=== PATIENT | female | born 1975 | race Caucasian/White ===

== ENCOUNTER → 2019-06-14 | Outpatient (REF) | payer OTHER | LOC: M SFHCPLAZ 11:12 | PROVIDERS: ATTEND Family Medicine | DX: Z13.1 Encounter for screening for diabetes mellitus (principal); Z13.220 Encounter for screening for lipoid disorders; R20.2 Paresthesia of skin ==

== ENCOUNTER → 2019-07-05 | Outpatient (REF) | payer OTHER ==
[2019-07-05 12:23] LABS: CHOLESTEROL RISK RATIO 5.925 (<5); FOLATE 11.9 NG/ML (>5.4)
[2019-07-05 12:46] LABS: HEMOGLOBIN A1c 5.4 %
[2019-07-05 13:04] LABS: MALB URINE SIEMENS 18.8 MG/L; MAU/CREAT RATIO 9.1 MCG/MG (0.0-30.0)
== END ==
LOC: M SFHCPLAZ 10:13
PROVIDERS: ATTEND Family Medicine
DX: Z13.220 Encounter for screening for lipoid disorders (principal); Z13.1 Encounter for screening for diabetes mellitus; R20.2 Paresthesia of skin

== ENCOUNTER → 2019-07-06 | Outpatient (CLI) | payer OTHER ==
--- NOTE | 2019-07-06 15:49 | REPMRS ---
Patient History The patient states she has not had a clinical breast exam in over a year. Family history of unknown cancer in paternal grandfather. Digital Woman Screen Mammo: July 06, 2019 - Exam #: [id number] Bilateral CC and MLO view(s) were taken. Technologist: Divine Jimenez, Technologist Prior study comparison: March 02, 2018, right breast diagnostic unilateral mammo, performed at [facility]. February 25, 2018, bilateral digital woman screen mammo, performed at [facility]. FINDINGS: The breast tissue is heterogeneously dense. This may lower the sensitivity of mammography. The previously noted intramammary lymph node in the upper outer quadrant of the right breast again seen unchanged. There is a moderate amount of heterogeneously dense fibroglandular tissue which is fairly symmetric. There is no interval development of dominant mass, architectural distortion, or grouped microcalcification typical of malignancy. There has been no change in the appearance of the mammogram from the prior studies. 3-D tomosynthesis shows no additional findings. Assessment: BI-RADS/ACR category 2 mammogram. Benign Findings. Recommendation Routine screening mammogram of both breasts in 1 year (for women over age 40). This patient's Lifetime Breast Cancer RIsk is estimated at 9.4 %. This mammogram was interpreted with the aid of an FDA-approved computer-aided dectection system. Electronically Signed By: Chase Schmidt MD 07/06/19 [id number]
== END ==
LOC: M WHC 14:23
PROVIDERS: ATTEND Student in an Organized Health Care Education/Training Program
DX: Z12.31 Encounter for screening mammogram for malignant neoplasm of breast (principal)

== ENCOUNTER → 2020-02-16 | Outpatient (REF) | payer OTHER | LOC: M SFHCWAGY 10:02 | PROVIDERS: ATTEND Student in an Organized Health Care Education/Training Program | DX: Z12.4 Encounter for screening for malignant neoplasm of cervix (principal) ==

== ENCOUNTER → 2021-01-30 | Outpatient (CLI) | payer OTHER ==
--- NOTE | 2021-01-30 12:58 | REP ---
INDICATION: LOW BACK PAIN, UNSPECIFIED COMPARISON: None. TECHNIQUE: AP, lateral, coned-down views of the lumbar spine. FINDINGS: Three views of the lumbosacral spine demonstrate satisfactory alignment and lordosis without acute fracture / compression injury or subluxation. Minimal age-related changes with small marginal spurring and mild hypertrophic facet changes. IMPRESSION: 1. No acute fracture / compression injury or subluxation. 2. Minimal age-related degenerative changes. If the patient remains symptomatic MRI should be considered for further investigation. <Electronically signed by Mp Amaro > 01/30/21 [id number]
== END ==
LOC: M PLALAB 12:12
PROVIDERS: ATTEND Nurse Practitioner Adult Health
DX: M25.78 Osteophyte, vertebrae (principal); M54.50 Low back pain, unspecified
CPT/HCPCS: 72100; G0463

== ENCOUNTER → 2021-03-07 | Outpatient (CLI) | payer OTHER ==
[2021-03-07 16:21] LABS: CHOLESTEROL RISK RATIO 6.648 (<5)
== END ==
LOC: M PLALAB 12:42
PROVIDERS: ATTEND Student in an Organized Health Care Education/Training Program
DX: E78.2 Mixed hyperlipidemia (principal)

== ENCOUNTER → 2021-03-07 | Outpatient (REF) | payer OTHER | LOC: M SFHCPLAZ 12:02 | PROVIDERS: ATTEND Family Medicine | DX: Z53.20 Procedure and treatment not carried out because of patient's decision for unspecified reasons (principal) ==

== ENCOUNTER → 2021-07-03 | Outpatient (CLI) | payer OTHER ==
[2021-07-03 13:39] LABS: BASO # 0.1 10^3/uL (0.0-0.2); BASO % 0.7 % (0.0-1.0); EOS # 0.2 10^3/uL (0.0-0.5); EOS % 2.5 % (0.0-3.0); HEMATOCRIT 42.5 % (36.0-47.0); HEMOGLOBIN 13.9 g/dl (12.0-15.5); LYMPH # 2.8 10^3/uL (1.5-5.0); LYMPH % 36.4 % (24.0-44.0); MEAN CORPUSCULAR HEMOGLOBIN 27.3 pg (27.0-33.0); MEAN CORPUSCULAR HGB CONC 32.7 g/dl (32.0-36.5); MEAN CORPUSCULAR VOLUME 83.5 fl (80.0-96.0); MONO # 0.5 10^3/uL (0.0-0.8); MONO % 6.9 % (2.0-8.0); NEUTROPHILS % 53.1 % (36.0-66.0); PLATELET COUNT, AUTOMATED 283 10^3/uL (150-450); RED BLOOD COUNT 5.09 10^6/uL (4.00-5.40); WHITE BLOOD COUNT 7.6 10^3/uL (4.0-10.0)
== END ==
LOC: M PLALAB 11:54
PROVIDERS: ATTEND Student in an Organized Health Care Education/Training Program
DX: R10.9 Unspecified abdominal pain (principal)

== ENCOUNTER → 2021-09-04 | Outpatient (CLI) | payer OTHER | LOC: M PLAIMG 13:12 | PROVIDERS: ATTEND Student in an Organized Health Care Education/Training Program | DX: R10.9 Unspecified abdominal pain (principal) ==

== ENCOUNTER → 2023-01-11 | Outpatient (CLI) | payer OTHER ==
[2023-01-11 17:50] LABS: BASO # 0.1 10^3/uL (0.0-0.2); BASO % 0.7 % (0.0-1.0); EOS # 0.2 10^3/uL (0.0-0.5); EOS % 2.5 % (0.0-3.0); HEMATOCRIT 40.1 % (36.0-47.0); HEMOGLOBIN 12.9 g/dl (12.0-15.5); LYMPH # 2.6 10^3/uL (1.5-5.0); LYMPH % 36.6 % (24.0-44.0); MEAN CORPUSCULAR HEMOGLOBIN 27.4 pg (27.0-33.0); MEAN CORPUSCULAR HGB CONC 32.2 g/dl (32.0-36.5); MEAN CORPUSCULAR VOLUME 85.3 fl (80.0-96.0); MONO # 0.5 10^3/uL (0.0-0.8); MONO % 6.6 % (2.0-8.0); NEUTROPHILS # 3.8 10^3/uL (1.5-8.5); NEUTROPHILS % 53.3 % (36.0-66.0); PLATELET COUNT, AUTOMATED 308 10^3/uL (150-450); WHITE BLOOD COUNT 7.1 10^3/uL (4.0-10.0)
[2023-01-11 18:04] LABS: HEMOGLOBIN A1c 4.7 % (4.0-6.0)
[2023-01-11 18:16] LABS: ALBUMIN 3.8 G/DL (3.2-5.2); ALKALINE PHOSPHATASE 76 U/L (46-116); ALT/SGPT 11 U/L (7.0-40); AST/SGOT 14 U/L (<34); BILIRUBIN,TOTAL 0.5 MG/DL (0.3-1.2); BLOOD UREA NITROGEN 10 MG/DL (9-23); CALCIUM LEVEL 9.4 MG/DL (8.5-10.1); CARBON DIOXIDE LEVEL 29 MMOL/L (20-31); CHLORIDE LEVEL 103 MMOL/L (98-107); CHOLESTEROL LEVEL 221 MG/DL (<200); CHOLESTEROL RISK RATIO 5.72 (<5); GLOMERULAR FILTRATION RATE > 60.0 (>58); GLUCOSE, FASTING 83 MG/DL (60-100); HDL CHOLESTEROL 38.6 MG/DL (>40); LDL CHOLESTEROL 110.2 MG/DL (<100); NON-HDL-C 182.4 MG/DL; POTASSIUM SERUM 4.1 MMOL/L (3.5-5.1); SODIUM LEVEL 140 MMOL/L (136-145); TOTAL PROTEIN 6.7 G/DL (5.7-8.2); TRIGLYCERIDES LEVEL 361 MG/DL (<150)
== END ==
LOC: M PLALAB 11:44
PROVIDERS: ATTEND Student in an Organized Health Care Education/Training Program
DX: Z00.00 Encounter for general adult medical examination without abnormal findings (principal)

== ENCOUNTER → 2023-01-25 | Outpatient (REF) | payer OTHER | LOC: M SFHCPLAZ 17:25 | PROVIDERS: ATTEND Student in an Organized Health Care Education/Training Program | DX: Z12.4 Encounter for screening for malignant neoplasm of cervix (principal) | CPT/HCPCS: G0123; G0463 ==

== ENCOUNTER → 2023-02-01 | Outpatient (CLI) | payer OTHER | LOC: M WHC 12:45 | PROVIDERS: ATTEND Student in an Organized Health Care Education/Training Program | DX: Z12.31 Encounter for screening mammogram for malignant neoplasm of breast (principal) ==

== ENCOUNTER → 2023-02-18 | Outpatient (CLI) | payer OTHER | LOC: M PLAIMG 14:06 | PROVIDERS: ATTEND Student in an Organized Health Care Education/Training Program | DX: R07.89 Other chest pain (principal) ==

== ENCOUNTER → 2023-04-29 | Outpatient (CLI) | payer OTHER ==
[2023-04-29 19:03] LABS: FREE T4 1.02 NG/DL (0.89-1.76); THYROID STIMULATING HORMONE 1.468 uIU/ML (0.55-4.78)
[2023-04-29 19:04] LABS: BLOOD UREA NITROGEN 16 MG/DL (9-23); CALCIUM LEVEL 9.2 MG/DL (8.5-10.1); CARBON DIOXIDE LEVEL 29 MMOL/L (20-31); CHLORIDE LEVEL 106 MMOL/L (98-107); CREATININE FOR GFR 0.65 MG/DL (0.55-1.30); GLOMERULAR FILTRATION RATE > 60.0 (>58); GLUCOSE, FASTING 74 MG/DL (60-100); POTASSIUM SERUM 4.2 MMOL/L (3.5-5.1); SODIUM LEVEL 141 MMOL/L (136-145)
== END ==
LOC: M PLALAB 15:52
PROVIDERS: ATTEND Student in an Organized Health Care Education/Training Program
DX: R00.0 Tachycardia, unspecified (principal)

== ENCOUNTER → 2024-02-28 | Outpatient (CLI) | payer OTHER | LOC: M WHC 10:55 | PROVIDERS: ATTEND Student in an Organized Health Care Education/Training Program | DX: Z12.31 Encounter for screening mammogram for malignant neoplasm of breast (principal); R92.333 Mammographic heterogeneous density, bilateral breasts ==

== ENCOUNTER → 2024-07-06 | Outpatient (CLI) | payer OTHER ==
[2024-07-06 16:05] LABS: BASO # 0.1 10^3/uL (0.0-0.2); BASO % 0.6 % (0.0-1.0); EOS # 0.1 10^3/uL (0.0-0.5); EOS % 1.6 % (0.0-3.0); HEMATOCRIT 41.9 % (36.0-47.0); HEMOGLOBIN 13.7 g/dl (12.0-15.5); LYMPH # 2.8 10^3/uL (1.5-5.0); LYMPH % 34.3 % (24.0-44.0); MEAN CORPUSCULAR HEMOGLOBIN 27.6 pg (27.0-33.0); MEAN CORPUSCULAR HGB CONC 32.7 g/dl (32.0-36.5); MEAN CORPUSCULAR VOLUME 84.3 fl (80.0-96.0); MONO # 0.5 10^3/uL (0.0-0.8); NEUTROPHILS # 4.6 10^3/uL (1.5-8.5); NEUTROPHILS % 57.1 % (36.0-66.0); PLATELET COUNT, AUTOMATED 321 10^3/uL (150-450); RED BLOOD COUNT 4.97 10^6/uL (4.00-5.40); WHITE BLOOD COUNT 8.1 10^3/uL (4.0-10.0)
[2024-07-06 16:32] LABS: ALBUMIN 3.8 G/DL (3.2-5.2); ALKALINE PHOSPHATASE 87 U/L (35-104); ALT/SGPT 14 U/L (7.0-40); AST/SGOT 11 U/L (<34); BILIRUBIN,TOTAL 0.6 MG/DL (0.3-1.2); BLOOD UREA NITROGEN 18 MG/DL (9-23); CALCIUM LEVEL 9.3 MG/DL (8.5-10.1); CARBON DIOXIDE LEVEL 30 MMOL/L (20-31); CHLORIDE LEVEL 105 MMOL/L (98-107); CHOLESTEROL LEVEL 230 MG/DL (<200); CHOLESTEROL RISK RATIO 4.76 (<5); CREATININE FOR GFR 0.74 MG/DL (0.55-1.30); GLOMERULAR FILTRATION RATE > 60.0 (>58); GLUCOSE, FASTING 72 MG/DL (60-100); HDL CHOLESTEROL 48.3 MG/DL (>40); LDL CHOLESTEROL 152.3 MG/DL (<100); NON-HDL-C 181.7 MG/DL; POTASSIUM SERUM 4.5 MMOL/L (3.5-5.1); SODIUM LEVEL 142 MMOL/L (136-145); TOTAL PROTEIN 7.2 G/DL (5.7-8.2); TRIGLYCERIDES LEVEL 147 MG/DL (<150)
== END ==
LOC: M PLALAB 11:44
PROVIDERS: ATTEND Physician Assistant
DX: R07.9 Chest pain, unspecified (principal)